=== PATIENT | female | born 1985 | race Caucasian/White ===

== ENCOUNTER 2016-09-05 05:46 | Inpatient (IN) | payer OTHER ==
[~2016-09-05] VITALS: Ht 165.1 cm; Wt 85.3 kg
[~2016-09-05 05:46] MED LIST: ABILIFY 5MG5 MG PO; AMBIEN 10MG10 MG PO; AMBIEN10 M1 PO; AMBIEN10 MG; ANTABUSE250 M1 PO; ATIVAN 0.5MG T0.5 MG PO; CAMPRAL333 MG PO; CLONAZEPAM1 M2 PO; DEXTROAMP-AMPHE20 MG PO; DISULFIRAM PO; FOLIC ACID 1 MG PO; GABAPENTIN400 MG PO; IBUPROFEN800 M1 PO; K-DUR 10MEQ TA10 MEQ PO; KETOROLAC TROME10 M1 PO; LATUDA120 M1 PO; LATUDA60 M1 PO; LEADER MELATONIN5 MG PO; LORAZEPAM1 M1 PO; MELATONIN5 M1 PO; METOPROLOL SUC100 M2 PO; MIRALAX17 G1 PO; MOTRIN 400 MG400 MG PO; OMEPRAZOLE40 M1 PO; ONDANSETRON ODT4 M1 PO; OXYCODONE5 MG PO; PROAIR HFA8.5 GM INH; PROPRANOLOL HCL20 MG PO; PROZAC10 MG PO; PROZAC20 M1 PO; SUBOXONE 8 MG-1 EACH SL; SUBOXONE 8 MG-21 TAB PO; TOPAMAX 100MG100 MG PO; TORADOL10 MG PO; TRAMADOL50 MG PO; Theragran Vitamins PO; VITAMIN B-150 MG PO; VITAMIN B1100 MG PO; VYVANSE60 M1 PO; ZOFRAN 4MG ORALL4 MG PO; ZOFRAN4 M1 PO; ZOFRAN4 M1 SL; [UNRECOGNIZED DRUG - OTHER] PO
--- NOTE | 2016-09-05 05:56 | ED GI/GU/ABDOMINAL COMPLAINT ---
History of Present Illness General Chief Complaint: Abdominal Pain/Flank Pain Stated Complaint: PANCREATITIS, NEEDS TO BE SEEN RIGHT AWAY PER PT Source: patient, old records Exam Limitations: no limitations Vital Signs & Intake/Output Vital Signs & Intake/Output Vital Signs Date Time Temp Pulse Resp B/P B/P Pulse O2 O2 Flow FiO2 Mean Ox Delivery Rate 09/05 0632 98.7 78 18 158/116 09/05 0612 99 Room Air 09/05 0612 98.7 78 18 158/116 99 Room Air Allergies Coded Allergies: aspirin (Intermediate, HIVES AND NAUSEA 02/18/16) carbamazepine (Intermediate, RASH 02/18/16) cephalexin (Mild, RASH 02/18/16) lamotrigine (From LAMICTAL) (Mild, RASH 02/18/16) amoxicillin (Mild, FLU LIKE S/S 02/18/16) Reconcile Medications Albuterol Sulfate (Proair Hfa) 90 MCG HFA.AER.AD 2 PUF INH Q4-6 PRN PRN BREATHING (Reported) Buprenorphine HCl/Naloxone HCl (Suboxone 8 MG-2 MG Sl Film) 8 MG-2 MG FILM 1 STR SL BID CHR. OPIATE DEPENDANCE (Reported) Clonazepam 1 MG TABLET 1 TAB PO BIDP PRN MENTAL HEALTH (Reported) Dextroamphetamine/Amphetamine (Dextroamp-Amphetamin 20 MG Tab) 20 MG TABLET 1 TAB PO DAILY ADD (Reported) Disulfiram (Antabuse) 250 MG TABLET 1 TAB PO DAILY ALCOHOL DETOX Ibuprofen 800 MG TABLET 1 TAB PO TID PRN PAIN (Reported) Lisdexamfetamine Dimesylate (Vyvanse) 60 MG CAPSULE 1 CAP PO DAILY MENTAL HEALTH (Reported) Lorazepam 1 MG TABLET 1 TAB PO 4 TIMES/DAY ANXIETY (Reported) Lurasidone HCl (Latuda) 80 MG TABLET 1 TAB PO QPM MENTAL HEALTH (Reported) Metoprolol Succinate 100 MG TAB.ER.24H 1 TAB PO DAILY UNK (Reported) Multivitamin (Qkiphy-O-Ggl) 1 TAB TAB 1 TAB PO DAILY SUPPLEMENT Omeprazole 40 MG CAPSULE.DR 1 CAP PO DAILY ACID REFLUX (Reported) Polyethylene Glycol 3350 (Miralax) 17 GM POWD.PACK 1 PAC PO DAILY CONSTIPATION (Reported) dissolve in water Zolpidem Tartrate (Ambien 10MG) 10 MG TABLET 1 TAB PO AT BEDTIME SLEEP ( Reported) Triage Nurses Notes Reviewed? yes ? N Is pt currently ? No HPI: Patient presents with periumbilical abdominal pain that radiates through to her back. The pain is sharp and stabbing in nature. The pain is 10 out of 10. There are no aggravating or alleviating factors. Positive nausea but no vomiting. No constipation or diarrhea. Similar symptoms in the past with pancreatitis. Patient states that her last alcoholic beverage was 3 days ago. Patient did not take her antihypertensive medicine yesterday or today. Past History Travel History Traveled to [place] past 21 day No Medical History Any Pertinent Medical History? 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 No Review of Systems Review of Systems Constitutional: Reports: no symptoms. EENTM: Reports: no symptoms. Respiratory: Reports: no symptoms. Cardiovascular: Reports: no symptoms. GI: Reports: see HPI, abdominal pain, nausea. Genitourinary: Reports: no symptoms. Musculoskeletal: Reports: no symptoms. Skin: Reports: no symptoms. Neurological/Psychological: Reports: no symptoms. Hematologic/Endocrine: Reports: no symptoms. Immunologic/Allergic: Reports: no symptoms. All Other Systems: Reviewed and Negative Physical Exam Physical Exam General Appearance: well developed/nourished, alert, awake, anxious, severe distress Head: atraumatic, normal appearance Eyes: Bilateral: PERRL, EOMI. Ears, Nose, Throat, Mouth: hearing grossly normal, DRY MUCOSA Neck: normal inspection, supple, full range of motion Respiratory: normal breath sounds, chest non-tender, no respiratory distress, lungs clear Cardiovascular: regular rate/rhythm, normal peripheral pulses Gastrointestinal: normal bowel sounds, soft, non-tender, no organomegaly Back: normal inspection, normal range of motion Extremities: normal range of motion Neurologic/Psych: no motor/sensory deficits, awake, alert, oriented x 3, normal gait, normal mood/affect Skin: intact, normal color, warm/dry Core Measures ACS in differential dx? No Severe Sepsis Present: No Septic Shock Present: No Progress Differential Diagnosis: biliary colic, cholecystitis, diverticulitis, gastritis, hepatitis, ischemic bowel, inflamm bowel dis, pancreatitis Plan of Care: Orders Procedure Date/time Status Admit to inpatient 09/05 657 Active US-LIMITED ABDOMEN 09/06 651 Active URINE DRUGS OF ABUSE 09/05 549 Active URINALYSIS 09/05 549 Active TRIGLYCERIDES 09/05 549 Complete LIPASE 09/05 549 Complete HUMAN BETA HCG SCREEN 09/05 549 Complete ETHANOL 09/05 549 Complete COMPREHENSIVE METABOLIC PANEL 09/05 549 Complete CBC WITHOUT DIFFERENTIAL 09/05 549 Complete AMYLASE 09/05 549 Complete Laboratory Tests 09/05/16 0624: Anion Gap 10, Estimated GFR > 60, BUN/Creatinine Ratio 25.0, Glucose 130 H, Calcium 8.7, Total Bilirubin 1.4 H, AST 44 H, ALT 52, Alkaline Phosphatase 75, Total Protein 7.2, Albumin 4.4, Globulin 2.8, Albumin/Globulin Ratio 1.6, Triglycerides 109, Amylase 62, Lipase 707 H, Total Beta HCG NEGATIVE, CBC w Diff NO MAN DIFF REQ, RBC 3.99 L, MCV 99.7 H, MCH 34.4 H, RDW 13.8, MPV 8.1, Gran % 81.8 H, Lymphocytes % 12.0 L, Monocytes % 4.8, Eosinophils % 0.5, Basophils % 0.9, Absolute Granulocytes 6.4, Absolute Lymphocytes 0.9 L, Absolute Monocytes 0.4, Absolute Eosinophils 0, Absolute Basophils 0.1, PUBS MCHC 34.5, Serum Alcohol < 10.0 Initial ED EKG: none Departure Departure Disposition: STILL A PATIENT Condition: Stable Clinical Impression Primary Impression: Pancreatitis, alcoholic, acute Qualifiers: Acute pancreatitis complication: unspecified Qualified Code: K85.20 - Alcohol induced acute pancreatitis without necrosis or infection Referrals: PATIENT HAS NO PRIMARY CARE DR (PCP/Family) Departure Forms: Customer Survey General Discharge Information Admission Note Spoke With: GENE UGALDE MD Documentation of Exam: Documentation of any treatments & extenuating circumstances including Concerns Regarding Discharge (functional status, medication knowledge or non-compliance, living conditions, etc.) that warrant an admission rather than observation: [NPO , IV FLUIDS, PAIN CONTROL, GI CONSULT.]
[2016-09-05 06:34] LABS: ABSOLUTE BASOPHIL COUNT 0.1 /CUMM (0.0-0.2); ABSOLUTE EOSINOPHIL COUNT 0 /CUMM (0.0-0.7); ABSOLUTE GRANULOCYTE CT 6.4 /CUMM (1.4-6.5); ABSOLUTE LYMPH COUNT 0.9 /CUMM (1.2-3.4); ABSOLUTE MONOCYTE COUNT 0.4 /CUMM (0.10-0.60); BASOPHIL % 0.9 % (0.0-2.0); EOSINOPHIL % 0.5 % (0-5); GRANULOCYTE % 81.8 % (42.2-75.2); HEMATOCRIT 39.8 % (37-47); MEAN CORPUSCULAR HGB 34.4 PG (27.0-31.0); MEAN CORPUSCULAR HGB CONC 34.5 G/DL (33.0-37.0); MEAN CORPUSCULAR VOLUME 99.7 FL (81.0-99.0); MEAN PLATELET VOLUME 8.1 FL (7.4-10.4); PLATELET COUNT 255 /CUMM (130-400); RBC DISTRIBUTION WIDTH 13.8 % (11.5-14.5); RED BLOOD CELL CT 3.99 /CUMM (4.20-5.40); WHITE BLOOD CELL COUNT 7.9 /CUMM (4.8-10.8)
--- NOTE | 2016-09-05 07:22 | History & Physical ---
ORION VALDEZ MD 09/05/16 0722: General Information and HPI History of Present Illness: This is a 31-year-old female with a past medical history of acute pancreatitis in the past, alcohol dependence, opiate and heroin overdose history currently on Suboxone, history of hypertension, presented to the [facility] at 5 AM in the morning with persistent abdominal pain and nausea. The patient had previous episodes of recurrent pancreatitis in the past with the last one being in February 2016. The patient described the pain in epigastric, sharp and radiating to the back, rated 9 on 10 associated with persistent nausea. The patient also had 3-4 episodes of clear vomitus yesterday and one in the morning prior coming to the hospital. She does admit of drinking alcohol intermittently and occasionally in her last drink was 4 days back and included 2 beers. She denies any other aggravating factors for her pancreatitis. She has been compliant with her medications and no decent changes in her medications have been made. Denies any recent sick contacts, diarrhea constipation. She is seen by a Dr. Meg Grullon of [facility] in [place] as her PCP, who prescribes her Suboxone for heroine dependent and overdose. Allergies/Medications Allergies: Coded Allergies: aspirin (Intermediate, HIVES AND NAUSEA 02/18/16) carbamazepine (Intermediate, RASH 02/18/16) cephalexin (Mild, RASH 02/18/16) lamotrigine (From LAMICTAL) (Mild, RASH 02/18/16) amoxicillin (Mild, FLU LIKE S/S 02/18/16) Home Med list Albuterol Sulfate (Proair Hfa) 90 MCG HFA.AER.AD 2 PUF INH Q4-6 PRN PRN BREATHING (Reported) Buprenorphine HCl/Naloxone HCl (Suboxone 8 MG-2 MG Sl Film) 8 MG-2 MG FILM 1 STR SL BID CHR. OPIATE DEPENDANCE (Reported) Clonazepam 1 MG TABLET 1 TAB PO BIDP PRN MENTAL HEALTH (Reported) Dextroamphetamine/Amphetamine (Dextroamp-Amphetamin 20 MG Tab) 20 MG TABLET 1 TAB PO DAILY ADD (Reported) Disulfiram (Antabuse) 250 MG TABLET 1 TAB PO DAILY ALCOHOL DETOX Ibuprofen 800 MG TABLET 1 TAB PO TID PRN PAIN (Reported) Lisdexamfetamine Dimesylate (Vyvanse) 60 MG CAPSULE 1 CAP PO DAILY MENTAL HEALTH (Reported) Lorazepam 1 MG TABLET 1 TAB PO 4 TIMES/DAY ANXIETY (Reported) Lurasidone HCl (Latuda) 80 MG TABLET 1 TAB PO QPM MENTAL HEALTH (Reported) Metoprolol Succinate 100 MG TAB.ER.24H 1 TAB PO DAILY UNK (Reported) Multivitamin (Rpoyft-F-Ffc) 1 TAB TAB 1 TAB PO DAILY SUPPLEMENT Omeprazole 40 MG CAPSULE.DR 1 CAP PO DAILY ACID REFLUX (Reported) Polyethylene Glycol 3350 (Miralax) 17 GM POWD.PACK 1 PAC PO DAILY CONSTIPATION (Reported) dissolve in water Zolpidem Tartrate (Ambien 10MG) 10 MG TABLET 1 TAB PO AT BEDTIME SLEEP ( Reported) Past History Travel History Traveled to [place] past 21 day No Medical History Neurological: NONE EENT: NONE Cardiovascular: hypertension Respiratory: asthma Gastrointestinal: pancreatitis Hepatic: ?LIVER PROBLEM Renal: NONE Musculoskeletal: EYRTHROMYALGIA Psychiatric: bipolar disease, depression, substance abuse, history of overdose on Prozac and alcohol PTSD Endocrine: NONE Blood Disorders: NONE Cancer(s): NONE 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 self Services at Home: None Primary Language: Uzbek Smoking Status: Current Some Day Smoker ETOH Use: occasional use Illicit Drug Use: marijuana, PAST HEROIN Functional Ability ADLs Independent: dressing, eating, toileting, bathing. Ambulation: independent IADLs Independent: shopping, housework, finances, food prep, telephone, transportation , medication admin. Review of Systems Review of Systems Constitutional: Reports: see HPI. Cardiovascular: Denies: chest pain, orthopena, palpitations, peripheral edema. Respiratory: Denies: see HPI, cough, hemoptysis, orthopnea, short of breath. GI: Reports: abdominal pain, constipation, nausea, vomiting. Exam & Diagnostic Data Last 24 Hrs of Vital Signs/I&O Vital Signs Date Time Temp Pulse Resp B/P B/P Pulse O2 O2 Flow FiO2 Mean Ox Delivery Rate 09/05 0729 98.6 76 18 142/98 98 Room Air 09/05 0632 98.7 78 18 158/116 09/05 0612 99 Room Air 09/05 0612 98.7 78 18 158/116 99 Room Air Intake & Output 09/05 0800 09/05 0000 09/04 1600 Intake Total Output Total Balance Patient 188 lb Weight Weight Reported by Patient Measurement Method Physical Exam General Appearance Alert, Oriented X3, Cooperative Skin No Rashes, No Breakdown Skin Temp/Moisture Exam: Cool/Dry Sepsis Skin Exam (color): Normal for Ethnicity, Cyanotic HEENT Atraumatic, PERRLA Neck Supple, No JVD Lymphatic Axillary nl, Cervical nl Cardiovascular Regular Rate, Normal S1, Normal S2 Lungs Clear to Auscultation, Normal Air Movement Abdomen epigastric tenderness normal BS no guarding or tenderness Neurological Normal Gait, Normal Speech Extremities No Clubbing, No Cyanosis Assessment/Plan Assessment: 31-year-old female 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 Labs shows normal WBC, hemoglobin, hematocrit, Chemistries shows sodium of 135, potassium of 3.8, creatinine of 0.6, lipase level of 783 Serum alcohol level less than 10 Assessment 1. Acute recurrent (6th episode in total)pancreatitis most likely secondary to alcohol abuse. Gallstone panceatitis is also a possibility and hence needs to be ruled out 2. History of hypertension 3. History of her heroin abuse and on suboxone 4. History of alcohol dependence 5. History of mood disorders and axiety 6.H/o ADHD Plan Admit the patient to general medicine floor Hydrated aggressively with IV Ringer lactate at 1 50 mL per hour. Currently the patient is on normal saline. We will switch to Ringer lactate once the bag is finished Pain control with tramadol. Avoid opioids by the patient is on Suboxone. hold suboxone while on opooids. We will also add gabapentin to the patient's pain control regimen, start 100 mg 3 times a day(once patient starts eating Check ultrasound to rule out gallbladder stones Start her on CIWA and ativan as per CIWA Repeat CBC and BMP in the morning to look for hemoconcentration If pain does not subside in the next [address] scan with IV contrast to look for pseudocyst or pancreatic fluid collection Nothing by mouth for now and will advance the diet in am . check lipid panel and hba1c Patient is full code DVT prophylaxis with subcutaneous Lovenox Pain pathways As Ranked By This Provider Problem List: 1. Pancreatitis 2. Intractable abdominal pain Core Measures/Miscellaneous Acute Coronary Syndrome ACS Diagnosis: No Cerebrovascular Accident CVA/TIA Diagnosis: No Congestive Heart Failure CHF Diagnosis: No Venous Thromboembolism VTE Risk Factors: Acute medical illness, Age > 40 [facility] prophylaxis d/t: VTE low risk, No contraindications No VTE Pharm Prophylaxis d/t: VTE low risk, No contraindications VTE Diagnosis: No VTE Type: NONE VTE Confirmed by (Test): NONE Severe Sepsis Severe Sepsis Present: No Septic Shock Septic Shock Present: No Miscellaneous Documentation Attending Case Discussed With: GENE UGALDE MD Primary Care Physician: PATIENT HAS NO PRIMARY CARE DR Patient sees these Specialists noneq Level of Patient Care: [facility] Attending MD Review Statement Attending Statement Attending MD Statement: examined this patient, discuss w/resident/PA/ACCURACY EXPERT, agreed w/resident/PA/ACCURACY EXPERT, reviewed EMR data (avail)
--- NOTE | 2016-09-05 08:43 | ULTRASOUND REPORT ---
EXAMINATION: US ABDOMEN LIMITED CLINICAL INFORMATION: Multiple episodes of pancreatitis. EtOH. COMPARISON: Ultrasound examinations of the abdomen done 02/20/2014 and 03/11/2016. CT of the abdomen and pelvis on April 2014, January 2015, May 2015, and September 2015. TECHNIQUE: Real-time imaging of the right upper quadrant abdominal viscera. FINDINGS: PANCREAS: In general, the overall size of the pancreas has increased slightly since the last exam February 2016. In addition, the parenchymal echotexture has diminished somewhat. This would be consistent with a mild form of acute pancreatitis. Enzyme correlation is suggested. However, there are no complications of pancreatitis demonstrated and no sign of peripancreatic effusions. LIVER: The liver demonstrates normal size, and contour. There is evidence of mild diffuse fatty filtration. No focal lesion or intrahepatic biliary duct dilatation. GALLBLADDER: Normal. The gallbladder is physiologically distended without evidence of stones, sludge, polyps, wall thickening or pericholecystic fluid. COMMON BILE DUCT: Normal in caliber measuring 0.4 cm in diameter. RIGHT KIDNEY: Normal. No hydronephrosis. No renal calculi or focal parenchymal lesions. The kidney measures 10.0 cm in maximum dimension. FREE FLUID: None. IMPRESSION: 1. Normal biliary tract. 2. Mild pancreatic enlargement with diminished echogenicity suggesting mild acute pancreatitis. No complications. 3. Fatty liver.
[2016-09-05 09:15] VITALS: BP 134/82
[2016-09-05 12:35] VITALS: BP 138/64
[2016-09-05 14:00] VITALS: BP 136/72
[2016-09-05 14:31] VITALS: BP 136/72
[2016-09-05 22:17] VITALS: BP 132/80
[2016-09-06 04:26] VITALS: BP 120/80
--- NOTE | 2016-09-06 07:22 | PN- Housestaff ---
NIKKI AARON,[facility] 09/06/16 0722: Subjective Follow-up For: Pancreatitis Complaints: pain scale (0-10) (8/10) Subjective: Ms Dyer appears sleepy today. However she states that she did not sleep well overnight because of abdominal pain 8/10 intensity. She reports improvement in her nausea and denies vomitting. She denies diarrhea. No palpitations or chest pains. No shortness of breath. Review of Systems Constitutional: Denies: chills, fever. EENTM: Denies: blurred vision, visual changes. Cardiovascular: Denies: chest pain, palpitations. Respiratory: Denies: cough, short of breath. Gastrointestinal: Reports: abdominal pain. Denies: constipation, diarrhea. Objective Last 24 Hrs of Vital Signs/I&O Vital Signs Date Time Temp Pulse Resp B/P B/P Pulse O2 O2 Flow FiO2 Mean Ox Delivery Rate 09/06 0919 68 148/100 09/06 0426 97.6 62 20 120/80 91 Room Air 09/05 2217 97.9 60 20 132/80 90 Room Air 09/05 1431 98.9 61 20 136/72 96 09/05 1400 98.9 61 20 136/72 09/05 1235 97.7 59 18 138/64 09/05 1235 97.7 59 18 138/64 95 Intake & Output 09/06 1600 09/06 0800 09/06 0000 Intake Total 1600 1200 Output Total Balance 1600 1200 Intake, IV 1200 1200 Intake, Oral 400 Physical Exam General Appearance: Oriented X3, Cooperative, No Acute Distress, Drowsy Skin: No Rashes Skin Temp/Moisture Exam: Warm/Dry HEENT: Dry mucous membranes Neck: Supple, No JVD, No thryomegaly, +2 Carotid Pulse wo Bruit Lymphatic: Cervical nl Cardiovascular: Regular Rate, Normal S1, Normal S2, No Murmurs Lungs: Clear to Auscultation, Normal Air Movement Abdomen: Soft, No Hepatospenomegaly, No Masses, Moves with respiration, Generalized tenderness, hypoactive bowel sounds Neurological: Normal Speech, Normal Tone Extremities: No Edema, Normal Pulses Current Medications: Current Medications Sig/Gemma Start time Last Medication Dose Route Stop Time Status Admin Acetaminophen 650 MG Q6P PRN 09/05 729 AC PO Acetaminophen 1,000 MG Q6P PRN 09/05 729 AC 09/06 IV 0827 Albuterol Sulfate 2 PUF Q4-6 PRN PRN 09/05 0730 AC INH Buprenorphine/ 1 TAB BID 09/05 1000 DC Naloxone SL Clonazepam 1 MG BID PRN 09/05 1000 AC PO 09/12 0959 Enoxaparin Sodium 40 MG DAILY 09/05 1000 AC 09/06 SC 0919 Hydromorphone HCl 1 MG Q4 HRS NEEDED PRN 09/06 1015 AC IV Hydromorphone HCl 1 MG Q6P PRN 09/05 0730 DC 09/06 IV 0923 Lactated Ringer's 1,000 ML Q6H 09/05 0745 AC 09/06 IV 0827 Lorazepam 0 Q1P PRN 09/05 0815 AC 09/05 IV 2026 Lurasidone HCl 80 MG QPM 09/05 2200 AC 09/05 PO 2025 Methylphenidate HCl 10 MG 0700,1200 09/05 1200 AC PO Metoprolol Succinate 100 MG DAILY 09/06 1000 AC 09/06 PO 0919 Non-Formulary 0 0700,1200 09/05 1200 DC Medication ANY Omeprazole 40 MG DAILY AC 09/05 0730 AC 09/06 PO 0619 Ondansetron HCl 4 MG ONCE ONE 09/05 1715 DC 09/05 IV 09/05 1716 1722 Ondansetron HCl 4 MG Q6P PRN 09/05 1345 AC 09/05 IV 1711 Senna/Docusate Sodium 2 TAB AT BEDTIME PRN 09/05 0730 AC PO Sodium Chloride 1,000 ML .[id number] 09/05 0715 ME 09/05 IV 0728 Tramadol HCl 50 MG Q6 PRN 09/05 0815 AC 09/06 PO 0619 Last 24 Hrs of Lab/Hunter Results Last 24 Hrs of Labs/Mics: Laboratory Tests 09/06/16 0640: Anion Gap 8, Estimated GFR > 60, BUN/Creatinine Ratio 6.7 L, CBC w Diff NO MAN DIFF REQ, RBC 3.33 L, MCV 98.0, MCH 34.5 H, RDW 13.9, MPV 8.5, Gran % 62.2, Lymphocytes % 26.6, Monocytes % 7.4, Eosinophils % 3.4, Basophils % 0.4, Absolute Granulocytes 3.4, Absolute Lymphocytes 1.4, Absolute Monocytes 0.4, Absolute Eosinophils 0.2, Absolute Basophils 0, PUBS MCHC 35.2 09/05/16 1050: Urine Opiates Screen 1237.00, Methadone Screen 62, Barbiturate Screen < 60, Ur Phencyclidine Scrn < 6.00, Amphetamines Screen > 1450.0 H, U Benzodiazepines Scrn > 800.0 H, Urine Cocaine Screen < 50, Urine Cannabis Screen 74.20 H, Urine Color YEL, Urine Clarity HAZY H, Urine pH 6.0, Ur Specific [place] >= 1.030, Urine Protein TRACE H, Urine Ketones NEG, Urine Nitrite NEG, Urine Bilirubin NEG, Urine Urobilinogen 0.2, Ur Leukocyte Esterase NEG, Ur Microscopic SEDIMENT EXAMINED, Urine RBC RARE, Urine WBC 3-5 H, Ur Epithelial Cells MANY H , Urine Bacteria MOD H, Urine Mucus PACKD H, Urine Hemoglobin NEG, Urine Glucose NEG Assessment/Plan Assessment: 31-year-old female 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 Labs shows normal WBC, hemoglobin, hematocrit, Chemistries shows sodium of 135, potassium of 3.8, creatinine of 0.6, lipase level of 783 Serum alcohol level less than 10 Assessment & Plan 1. Acute recurrent (6th episode in total)pancreatitis most likely secondary to alcohol abuse. * Gallstone panceatitis ruled out with abd ultrasound which showed inflammed pancreas, but gall stones * Increase hydration with IV Ringer lactate at 200 mL per hour as patient appears dry * Pain control with tramadol. Increase frequency of IV dilaudid to 1mg Q 4 hours (from 1mg Q 6hrs) for severe pain/breakthrough.hold suboxone while on opioids. PLEASE WATCH FOR SEDATION AND RESPIRATORY DEPRESSION * Start clear liquid diet if tolerated * Continue IV zofran 4mg Q6PRN * Continue CIWA and ativan as per CIWA * If pain does not subside in the next [address] scan with IV contrast to look for pseudocyst or pancreatic fluid collection * Lipid panel and hba1c within normal limits * Continue omeprazole 40 mg daily 2. History of hypertension * Continue metoprolol XL 100 mg daily 3. History of her heroin abuse and on suboxone * Hold suboxone while on dilaudid 4. History of alcohol dependence * Ativan as per [facility] protocol 5. History of mood disorders and axiety * Continue clonopin, lurasidone 6. H/o ADHD * Continue ritalin * 7. Code status * Patient is full code 8. DVT prophylaxis * Subcutaneous Lovenox Problem List: 1. Pancreatitis 2. Alcohol dependence 3. Bipolar disorder 4. DVT prophylaxis 5. Full code status Pain Ratin Pain Location: Abdomen Pain Goal: Pain 4 or less Pain Plan: PO tramadol, IV dilaudid Tomorrow's Labs & Rationales: CBC, BEP Monitor blood counts/anemia and renal function in acute pancreatitis DVT/Prophylaxis: pharmacological LIA GARCIA MD 09/06/16 1446: Attending MD Review Statement Attending Statement Attending MD Statement: examined this patient, discuss w/resident/PA/DIP PAINTER, agreed w/resident/PA/DIP PAINTER, reviewed EMR data (avail) Attending Assessment/Plan: 31F PMH alcohol abuse, recurrent pancreatitis with chronic pancreatitis admitted with intractable nausea, vomiting, and epigastric pain in the setting of acute on chronic pancreatitis confirmed by ultrasound, with no evidence of cholelithiasis. Patient is uncomfortable and sleepy today, refusing to answer questions. Her abdomen is pulverizer tender. Hemodynamically stable. 1. Acute pancreatitis 2. Chronic pancreaitis 3. Intractable nausea and vomiting, non-cyclical 4. Intractable abdominal pain Plan - Continue on general medicine - Continue IV hydration - Increase frequency of Dilaudid to 1mg q4h PRN - Continue Zofran PRN - continue to hold Subuxone - Obtain psychiatry consult to assist with alcohol dependence and subuxone dosing once restarted - Continue home medications - Advance diet as tolerated - DVT PPx
[2016-09-06] MEDS ORDERED: DAILY MULTIPLE1 EACH PO (07:44)
[2016-09-06 08:06] LABS: ABSOLUTE BASOPHIL COUNT 0 /CUMM (0.0-0.2); ABSOLUTE EOSINOPHIL COUNT 0.2 /CUMM (0.0-0.7); ABSOLUTE GRANULOCYTE CT 3.4 /CUMM (1.4-6.5); ABSOLUTE LYMPH COUNT 1.4 /CUMM (1.2-3.4); ABSOLUTE MONOCYTE COUNT 0.4 /CUMM (0.10-0.60); BASOPHIL % 0.4 % (0.0-2.0); EOSINOPHIL % 3.4 % (0-5); GRANULOCYTE % 62.2 % (42.2-75.2); MEAN CORPUSCULAR HGB 34.5 PG (27.0-31.0); MEAN CORPUSCULAR HGB CONC 35.2 G/DL (33.0-37.0); MEAN PLATELET VOLUME 8.5 FL (7.4-10.4); PLATELET COUNT 226 /CUMM (130-400); RBC DISTRIBUTION WIDTH 13.9 % (11.5-14.5); RED BLOOD CELL CT 3.33 /CUMM (4.20-5.40); WHITE BLOOD CELL COUNT 5.4 /CUMM (4.8-10.8)
[2016-09-06 08:39] LABS: HEMATOCRIT 32.6 % (37-47)
[2016-09-06 13:58] VITALS: BP 126/78
[2016-09-06 22:00] VITALS: BP 110/50
[2016-09-07] VITALS (10 sets, daily range): BP systolic 120–165; BP diastolic 70–110
--- NOTE | 2016-09-07 07:17 | PN- Housestaff ---
NIKKI AARON,[facility] 09/07/16 0717: Subjective Follow-up For: Pancreatitis Abdominal pain and vomitting Complaints: pain scale (0-10) (8/10) Subjective: Ms Dyer was found sleeping quietly in bed. However on awakening she stated that she did not sleep well overnight because of her abdominal pain 8/10 intensity that radiates to the back. Despite increasing the frequency of her IV dilaudid to 1 mg Q 4 hrs yesterday, she admits to only transient relief for about 1 hour. She reports continued nausea, but no vomitting. She denies diarrhea and has no bowel movement yet. Her appetite remains poor and she only ate minimal food yesterday. No palpitations or chest pains. No shortness of breath. Review of Systems Constitutional: Denies: chills, fever. EENTM: Denies: blurred vision, visual changes. Cardiovascular: Denies: edema, palpitations, syncope. Respiratory: Denies: cough, short of breath, sputum production. Gastrointestinal: Denies: abdominal pain, constipation, diarrhea. Genitourinary: Denies: dysuria, hematuria. Objective Last 24 Hrs of Vital Signs/I&O Vital Signs Date Time Temp Pulse Resp B/P B/P Pulse O2 O2 Flow FiO2 Mean Ox Delivery Rate 09/07 0846 98.9 52 20 140/90 94 09/07 0604 98.9 52 20 120/70 93 Room Air 09/06 2200 98.3 64 18 110/50 98 Room Air 09/06 1358 98.1 61 20 126/78 94 Room Air 09/06 0919 68 148/100 Intake & Output 09/07 1600 09/07 0800 09/07 0000 Intake Total 1160 Output Total Balance 1160 Intake, IV 800 Intake, Oral 360 Physical Exam General Appearance: Alert, Oriented X3, Cooperative, No Acute Distress Skin: No Rashes Skin Temp/Moisture Exam: Warm/Dry HEENT: Atraumatic, PERRLA, EOMI, Mucous Membr. moist/pink Neck: Supple, No JVD, No thryomegaly, +2 Carotid Pulse wo Bruit Lymphatic: Cervical nl Cardiovascular: Regular Rate, Normal S1, Normal S2, No Murmurs Lungs: Clear to Auscultation, Normal Air Movement Abdomen: Normal Bowel Sounds, Soft, Generalized tenderness, Hypoactive bowel sounds Neurological: Normal Gait, Normal Speech, Strength at 5/5 X4 Ext Extremities: No Edema, Normal Pulses Vascular: Normal Pulses, Pulses Symmetrical Current Medications: Current Medications Sig/Gemma Start time Last Medication Dose Route Stop Time Status Admin Acetaminophen 650 MG Q6P PRN 09/05 0730 AC PO Acetaminophen 1,000 MG Q6P PRN 09/05 0730 AC 09/06 IV 1449 Albuterol Sulfate 2 PUF Q4-6 PRN PRN 09/05 0730 AC INH Buprenorphine/ 1 TAB BID 09/05 1000 DC Naloxone SL Clonazepam 1 MG BID PRN 09/05 1000 AC 09/06 PO 09/12 0959 1918 Enoxaparin Sodium 40 MG DAILY 09/05 1000 AC 09/06 SC 0919 Hydromorphone HCl 1 MG Q4 HRS NEEDED PRN 09/06 1015 AC 09/07 IV 0618 Hydromorphone HCl 1 MG Q6P PRN 09/05 0730 DC 09/06 IV 0923 Lactated Ringer's 1,000 ML Q6H 09/05 0745 AC 09/07 IV 0240 Lorazepam 0 Q1P PRN 09/05 0815 AC 09/05 IV 2026 Lurasidone HCl 80 MG QPM 09/05 2200 AC 09/06 PO 2132 Methylphenidate HCl 10 MG 0700,1200 09/05 1200 AC PO Metoprolol Succinate 100 MG DAILY 09/06 1000 AC 09/06 PO 0919 Omeprazole 40 MG DAILY AC 09/05 0730 DC 09/06 PO 0619 Ondansetron HCl 4 MG Q6P PRN 09/05 1345 AC 09/05 IV 1711 Pantoprazole Sodium 40 MG AT BEDTIME 09/06 2200 AC 09/06 IV 2131 Potassium Chloride 40 MEQ ONCE ONE 09/06 220 DC 09/06 PO 09/06 220 2132 Potassium Chloride 40 MEQ ONCE ONE 09/06 2014 DC 09/06 PO 09/06 2016 2030 Potassium Chloride 10 MEQ Q1H 09/06 2000 DC IV 09/06 2101 Potassium Chloride 10 MEQ Q1H 09/06 1045 DC 09/06 IV 09/06 1146 1516 Senna/Docusate Sodium 2 TAB AT BEDTIME PRN 09/05 0730 AC PO Tramadol HCl 50 MG Q6 PRN 09/05 0815 AC 09/06 PO 2029 Last 24 Hrs of Lab/Hunter Results Last 24 Hrs of Labs/Mics: Laboratory Tests 09/07/16 0620: Anion Gap 9, Estimated GFR > 60, BUN/Creatinine Ratio 6.0 L, CBC w Diff Pending , WBC Pending, RBC Pending, Hgb Pending, Hct Pending, MCV Pending, MCH Pending, RDW Pending, Plt Count Pending, MPV Pending, PUBS MCHC Pending Assessment/Plan Assessment: 31-year-old woman with a 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 She has been hydrated with IV ringers lactate and her pain is being managed with PO tramadol 50 mg Q6 prn and IV dilaudid 1 mg Q4 PRN for severe pain. Her pain persists and she is not tolerating a clear liquid diet well. She also does not feel hungry at this time. However, her hydration status is improved as she does not appear as dry as previously. Assessment & Plan 1. Acute pancreatitis (Recurrent-6th episode in total) most likely secondary to alcohol abuse. * Gallstone panceatitis ruled out with abd ultrasound which showed inflammed pancreas, but gall stones * Can decrease IV Ringer lactate to 150 cc per hour as patient's hydration is improved * Continue Pain control with PO tramadol 50 mmg Q6 hrs. Continue IV dilaudid at 1mg Q 4 hours for severe pain/breakthrough. I hesitate to increase the frequency of dilaudid to Q1 mg Q3 hours. PLEASE WATCH FOR SEDATION AND RESPIRATORY DEPRESSION. * Continue to hold suboxone while on opioids * Continue clear liquid diet as tolerated * Continue IV zofran 4mg Q6PRN * Continue CIWA and ativan as per CIWA * If no overall improvement in clinical status will consider abdominal CT scan with IV contrast to look for pseudocyst or pancreatic fluid collection * Lipid panel and hba1c within normal limits * PO Omeprazole 40 mg daily changed to IV protonix 40 mg daily 2. History of hypertension * Continue metoprolol XL 100 mg daily 3. History of her heroin abuse and on suboxone * Hold suboxone while on dilaudid 4. History of alcohol dependence * Ativan as per CIWA protocol 5. History of mood disorders and axiety * Continue clonopin, lurasidone 6. H/o ADHD * Continue ritalin * 7. Code status * Patient is full code 8. DVT prophylaxis * Subcutaneous Lovenox Problem List: 1. Pancreatitis, alcoholic, acute 2. Alcohol dependence 3. Bipolar disorder 4. Heroin abuse 5. DVT prophylaxis 6. Full code status Pain Ratin Pain Location: Abdomen Pain Goal: Pain 4 or less Pain Plan: PO tramadol, IV dilaudid Tomorrow's Labs & Rationales: CBC, BEP: Monitor blood counts/anemia and renal function in acute pancreatitis LIA GARCIA MD 09/07/16 1331: Attending MD Review Statement Attending Statement Attending MD Statement: examined this patient, discuss w/resident/PA/COP BREAKER, agreed w/resident/PA/COP BREAKER, reviewed EMR data (avail) Attending Assessment/Plan: 31F PMH alcohol abuse, recurrent pancreatitis with chronic pancreatitis admitted with intractable nausea, vomiting, and epigastric pain in the setting of acute on chronic pancreatitis confirmed by ultrasound, with no evidence of cholelithiasis. Patient is uncomfortable and sleepy today, refusing to answer questions. 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 Hemodynamically stable. 1. Acute pancreatitis 2. Chronic pancreaitis 3. Intractable nausea and vomiting, non-cyclical 4. Intractable abdominal pain Plan - Continue on general medicine - Continue IV hydration - Increase frequency of Dilaudid to 1mg q4h PRN - Continue Zofran PRN - Restart Subuxone tomorrow - Obtain psychiatry consult to assist with alcohol dependence and subuxone dosing once restarted - Continue home medications - Advance diet as tolerated - DVT PPx - Anticipated discharge tomorrow. Send CMR for review.
[2016-09-07 08:54] LABS: ABSOLUTE BASOPHIL COUNT 0 /CUMM (0.0-0.2); ABSOLUTE EOSINOPHIL COUNT 0.1 /CUMM (0.0-0.7); ABSOLUTE GRANULOCYTE CT 3.4 /CUMM (1.4-6.5); ABSOLUTE MONOCYTE COUNT 0.4 /CUMM (0.10-0.60); BASOPHIL % 0.3 % (0.0-2.0); EOSINOPHIL % 1.8 % (0-5); GRANULOCYTE % 68.7 % (42.2-75.2); HEMATOCRIT 31.4 % (37-47); MEAN CORPUSCULAR HGB 34.8 PG (27.0-31.0); MEAN CORPUSCULAR HGB CONC 35.2 G/DL (33.0-37.0); MEAN CORPUSCULAR VOLUME 98.7 FL (81.0-99.0); MEAN PLATELET VOLUME 8.9 FL (7.4-10.4); PLATELET COUNT 214 /CUMM (130-400); RBC DISTRIBUTION WIDTH 13.8 % (11.5-14.5); RED BLOOD CELL CT 3.19 /CUMM (4.20-5.40); WHITE BLOOD CELL COUNT 4.9 /CUMM (4.8-10.8)
[2016-09-07] MEDS ORDERED: FLUOXETINE HCL20 M2 PO (21:34)
--- NOTE | 2016-09-07 21:46 | Patient Discharge Instructions ---
Discharge Instructions General Discharge Information You were seen/treated for: Acute pancreatitis Abdominal pain Nausea and vomitting Watch for these problems: Worsening abdominal pain, intractable vomitting. fever Special Instructions: 1. Follow up with your primary care physician within 1 week of discharge. You have no primary care provider so you have been referred to Dr. Esther Bond at [address] [place] [address], [place] [id number] . Please call and make an appointment 2. Please abstain from alcohol as this can induce or worsen your pancreatitis. You stated that you have a prescription for acamprosate at home. Please continue with this medication to support your alcohol abstinence. 3. You have been given a few dilaudid pills for your pancreatitis pain. Please stop taking your suboxone while you are on dilaudid and restart your suboxone ONLY after your dilaudid pills are finished. DO NOT TAKE BOTH DILAUDID AND SUBOXONE AT THE SAME TIME. Diet Continue normal diet: No Recommended Diet: Regular Activity Full Activity/No Limits: No Activity Self Limited: Yes Acute Coronary Syndrome Inclusion Criteria At DC or during hospital stay patient has or had the following: ACS DIAGNOSIS No Discharge Core Measures Meds if any: Prescribed or Continued at Discharge Meds if any: NOT Prescribed or Continued at Discharge Congestive Heart Failure Inclusion Criteria At DC or during hospital stay patient has or had the following: CHF DIAGNOSIS No Discharge Core Measures Meds if any: Prescribed or Continued at Discharge Meds if any: NOT Prescribed or Continued at Discharge Cerebrovascular accident Inclusion Criteria At DC or during hospital stay patient has or had the following: CVA/TIA Diagnosis No Discharge Core Measures Meds if any: Prescribed or Continued at Discharge Meds if any: NOT Prescribed or Continued at Discharge Venous thromboembolism Inclusion Criteria VTE Diagnosis No VTE Type NONE VTE Confirmed by (Test) NONE Discharge Core Measures - Per Current guidelines, there needs to be overlap - treatment for the first 5 days of Warfarin therapy. - If discharged on Warfarin prior to 5 days of - overlap therapy, the patient will need to be - assessed for post discharge needs including - *Post discharge parental anticoagulation - *Warfarin and/or parental anticoagulation education - *Follow up date to check INR post discharge At least 5 days overlap therapy as Inpatient No (No DVT) Meds if any: Prescribed or Continued at Discharge Note: Overlap Therapy is Warfarin and Anticoagulant Meds if any: NOT Prescribed or Continued at Discharge
[2016-09-08] VITALS: BP 142/86
[2016-09-08 06:30] VITALS: BP 140/82
--- NOTE | 2016-09-08 07:12 | Discharge Summary ---
Visit Information Visit Dates Admission Date: 09/05/16 Discharge Date: 09/08/16 Hospital Course Course Attending Physician: LIA GARCIA MD Primary Care Physician: PATIENT HAS NO PRIMARY CARE DR Hospital Course: Ms. Dyer is a 31 year old woman with a past medical history of alcohol abuse, previous recurrent episodes of alcoholic induced pancreatitis, anxiety, heroine abuse currently on chronic suboxone maintenance, history of suicidal attempts and bipolar disorder and ED with cheif complaints of epigastric and to the lower abdominal pain that radiates to her back. She has exprienced at least 6 previous episodes of recurrent pancreatitis in the past with the last one being in February 2016. She rated her epigastric pain as 9/10 intensity and associated with persistent nausea and 3-4 episodes of clear vomitus a day prior to presentation. She did admit to drinking alcohol intermittently despite her past episodes of pancreatitis (Reportedly, her last drink was 2 beers 4 days prior to presentation). Vitals at the time of admission showed a heart rate of 78 bpm, blood pressure 158/116 bpm, respiration rate of 18/min, O2 saturation of 99% on room air, temperature of 98.7F. Physical exam General Appearance: Alert, Oriented X3, Cooperative Skin: No Rashes, No Breakdown Skin Temp/Moisture Exam: Cool/Dry Sepsis Skin Exam (color): Normal for Ethnicity, Cyanotic HEENT: Atraumatic, PERRLA Neck: Supple, No JVD Lymphatic: Axillary nl, Cervical nl Cardiovascular: Regular Rate, Normal S1, Normal S2 Lungs: Clear to Auscultation, Normal Air Movement Abdomen: epigastric tenderness normal BS no guarding or tenderness Neurological: Normal Gait, Normal Speech Extremities: No Clubbing, No Cyanosis Labs showed: normal WBC 7.9/CUMM, hemoglobin 13.8 mg/dl, hematocrit 39% Chemistries shows sodium of 133, potassium of 3.8, creatinine of 0.6, lipase level of 707 (elevated), Total bilirubin 1.4, AST 44, ALT 44. Serum alcohol level was less than 10 A abdominal ultrasound showed a fatty liver with pancreatic enlargement with diminished echogenicity suggesting mild acute pancreatitis. No complications. She was admitted to the general [facility] for treatment of acute pancreatitis. Problem list 1. Acute Pancreatitis This was her 6th episode of pancreatitis and was likely related her continued alcohol use. She was started on IV fluids and placed on NPO for bowel rest. Her pain was controlled with IV dilaudid and PO tramadol. Her diet was gradually advanced and she was able to tolerate a normal diet without significant pain or vomitting prior to discharge. 2. Chronic opioid dependence She was placed on IV opiates at time of admission for control of her pain from pancreatitis. Her suboxone home medication was temporarily held while on admission. At discharge, she was counselled and given only a few pills of dilaudid for pain and told to restart her suboxone only after she has finished her dilaudid pills. She was reviewed by psychiatrist, Syed Nunez APRN. Her pain management physician Dr. Meg Grullon of [facility] in [place] was contacted and was aware of this. 3. History of alcohol dependence She was not actively withdrawing while in the hospital and her CIWA scores were low. She was counselled to abstain from alcohol and given a dose of Campral just prior to discharge. She stated that she has additional campral at home and would take it to help with abstinence from alcohol. She agreed to return to AA meetings. 4. History of bipolar disorder She was continued on her home medications including clonazepam. 5. DVT prophylaxis She was on Lovenox 40mg SC daily She had no primary care provider and was offered an appointment with Dr. sEther Bond on discharge. However, she refused and said she would follow up with another PCP of her choice. Allergies: Coded Allergies: aspirin (Intermediate, HIVES AND NAUSEA 02/18/16) carbamazepine (Intermediate, RASH 02/18/16) cephalexin (Mild, RASH 02/18/16) lamotrigine (From LAMICTAL) (Mild, RASH 02/18/16) amoxicillin (Mild, FLU LIKE S/S 02/18/16) Disposition Summary Disposition Principal Diagnosis: 1. Acute pancreatitis Additional Diagnosis: 1. Intractable nausea and vomiting, non-cyclical 2. Intractable abdominal pain 3. Hypertension 3. History of heroin abuse and on suboxone 4. History of alcohol dependence 5. Bipolar disorder Discharge Disposition: home or self care Discharge Instructions General Discharge Information Code Status: Full Code Patient's Diet: Regular Patient's Activity: Self limited activity Follow-Up Instructions/Appts: 1. Follow up with your primary care physician within 1 week of discharge. You have no primary care provider so you have been referred to Dr. Esther Bond at [address] [place] [address], [place] [address] . Please call and make an appointment 2. Please abstain from alcohol as this can induce or worsen your pancreatitis. You stated that you have a prescription for acamprosate at home. Please continue with this medication to support your alcohol abstinence. 3. You have been given a few dilaudid pills for your pancreatitis pain. Please stop taking your suboxone while you are on dilaudid and restart your suboxone ONLY after your dilaudid pills are finished. DO NOT TAKE BOTH DILAUDID AND SUBOXONE AT THE SAME TIME. Medications at Discharge Discharge Medications: Continue taking these medications: Buprenorphine HCl/Naloxone HCl (Suboxone 8 MG-2 MG Sl Film) 8 MG-2 MG FILM 1 Strip SUBLINGUAL TWICE DAILY Comments: RESUME ONCE NO LONGER TAKING DILAUDID Zolpidem Tartrate (Ambien) 10 MG TABLET 1 Tablet ORAL Every night Comments: DID NOT RECEIVE IN HOSPITAL Dextroamphetamine/Amphetamine (Dextroamp-Amphetamin 20 MG Tab) 20 MG TABLET 1 Tablet ORAL THREE TIMES DAILY Qty = 90 Comments: DID NOT RECEIVE IN HOSPITAL Polyethylene Glycol 3350 (Miralax) 17 GM POWD.PACK 1 Packet ORAL DAILY Instructions: dissolve in water Comments: DID NOT RECEIVE IN HOSPITAL Ibuprofen (Ibuprofen) 800 MG TABLET 1 Tablet ORAL THREE TIMES DAILY as needed for PAIN Comments: DID NOT RECEIVE IN HOSPITAL Lurasidone HCl (Latuda) 120 MG TABLET 1 Tablet ORAL Every night Comments: Last Taken:09/07/16 Time:10PM Clonazepam (Clonazepam) 1 MG TABLET 1 Tablet ORAL 2 x Daily as needed as needed for MENTAL HEALTH Qty = 60 Comments: Last Taken:09/08/16 Time:0900 Omeprazole (Omeprazole) 40 MG CAPSULE.DR 1 Capsule ORAL DAILY Qty = 30 Comments: DID NOT RECEIVE IN HOSPITAL Metoprolol Succinate (Metoprolol Succinate) 100 MG TAB.ER.24H 1 Tablet ORAL DAILY Qty = 30 Comments: Last Taken:09/08/16 Time:0930 Albuterol Sulfate (Proair Hfa) 90 MCG HFA.AER.AD 2 Puff Inhale through mouth EVERY 4-6 HOURS NEEDED as needed for BREATHING Qty = 8 Comments: DID NOT TAKE IN HOSPITAL Multivitamin (Daily Multiple Vitamin) 1 EACH TABLET 1 Tablet ORAL DAILY Comments: DID NOT RECEIVE IN HOSPITAL Fluoxetine HCl (Fluoxetine HCl) 20 MG CAPSULE 1 Capsule ORAL DAILY Qty = 30 Comments: DID NOT RECEIVE IN HOSPITAL Sumatriptan Succinate (Sumatriptan Succinate) 6 MG/0.5 ML PEN.INJCTR 0.5 Milliliters SUB-Q GIVE ONCE as needed for migraine Qty = 1 Instructions: USE AT ONSET OF MIGRAINE HEADACHE. DO NOT TAKE MORE THAN 12MG IN 24 HOURS. Comments: Last Taken:09/08/16 Time:1200 Start taking the following new medications: Ondansetron (Ondansetron Odt) 8 MG TAB.RAPDIS 1 Tablet ORAL EVERY 8 HOURS NEEDED as needed for NAUSEA OR VOMITTING Qty = 12 No Refills Comments: DID NOT RECEIVE IN HOSPITAL Hydromorphone HCl (Dilaudid) 4 MG TABLET 1 Tablet ORAL EVERY 4 HOURS NEEDED as needed for SEVERE PAIN Qty = 12 No Refills Comments: DID NOT RECEIVE IN HOSPITAL Copies To: JOSE AARON,CHUY HARRINGTON APRN, MD,[facility]
--- NOTE | 2016-09-08 07:59 | PN- Housestaff ---
NIKKI AARON,[facility] 09/08/16 0759: Subjective Follow-up For: Pancreatitis Abdominal pain and vomitting Complaints: pain scale (0-10) (7/10) Subjective: Ms Dyer was found sleeping quietly in bed. On awakening she states that her abdominal pain is a bit better at 7/10 intensity. However she does not appear to be in significant pain on her current pain regimen of IV dilaudid 1 mg Q 4 hrs. She reports continued nausea, but she was able to keep her food down. She denies diarrhea and has no bowel movement yet. Her appetite is improved. No palpitations or chest pains. No shortness of breath. Review of Systems Constitutional: Denies: chills, fever, weakness. EENTM: Denies: blurred vision, visual changes. Cardiovascular: Denies: chest pain, palpitations, syncope. Respiratory: Denies: cough, short of breath, sputum production. Gastrointestinal: Reports: abdominal pain, nausea. Denies: constipation, diarrhea, vomiting. Objective Last 24 Hrs of Vital Signs/I&O Vital Signs Date Time Temp Pulse Resp B/P B/P Pulse O2 O2 Flow FiO2 Mean Ox Delivery Rate 09/08 0937 82 130/80 09/08 0847 98.0 60 18 140/86 96 09/08 0630 99.2 67 18 140/82 95 Room Air 09/08 0000 99.5 64 20 142/86 09/07 2229 99.5 64 20 142/86 93 Room Air 09/07 2200 98.5 80 20 142/80 09/07 2000 98.5 55 20 142/80 09/07 1819 142/80 09/07 1800 98.5 51 20 142/80 09/07 1734 98.5 55 20 165/110 96 Room Air 09/07 1600 98.6 51 20 130/88 Intake & Output 09/08 1600 09/08 0800 09/08 0000 Intake Total 600 450 Output Total Balance 600 450 Intake, Oral 600 450 Physical Exam General Appearance: Alert, Oriented X3, Cooperative, No Acute Distress Skin Temp/Moisture Exam: Warm/Dry HEENT: Atraumatic, PERRLA, EOMI, Mucous Membr. moist/pink Neck: Supple, No JVD, No thryomegaly, +2 Carotid Pulse wo Bruit Lymphatic: Cervical nl Cardiovascular: Regular Rate, Normal S1, Normal S2, No Murmurs Lungs: Clear to Auscultation, Normal Air Movement Abdomen: Normal Bowel Sounds, Soft, Mild tenderness in epigastric and periumbilical region Neurological: Normal Gait, Normal Speech, Normal Tone Extremities: No Clubbing, No Edema Vascular: Normal Pulses, Pulses Symmetrical Current Medications: Current Medications Sig/Gemma Start time Last Medication Dose Route Stop Time Status Admin Acamprosate 333 MG TID 09/08 1000 DCD 09/08 PO 1218 Acetaminophen 650 MG Q6P PRN 09/05 0730 DCD PO Acetaminophen 1,000 MG Q6P PRN 09/05 0730 DCD 09/06 IV 1449 Albuterol Sulfate 2 PUF Q4-6 PRN PRN 09/05 0730 DCD INH Clonazepam 1 MG BID PRN 09/05 1000 DCD 09/08 PO 09/12 0959 0937 Enoxaparin Sodium 40 MG DAILY 09/05 1000 DCD 09/08 SC 0937 Hydromorphone HCl 1 MG Q4 HRS NEEDED PRN 09/06 1015 DCD 09/08 IV 1330 Lorazepam 0 Q1P PRN 09/05 0815 DCD 09/05 IV 2026 Lurasidone HCl 80 MG QPM 09/05 2200 DCD 09/07 PO 2143 Methylphenidate HCl 10 MG 0700,1200 09/05 1200 DCD 09/07 PO 0911 Metoprolol Succinate 100 MG DAILY 09/06 1000 DCD 09/08 PO 0937 Ondansetron HCl 4 MG .STK-MED ONE 09/07 2138 DC IM 09/07 2139 Ondansetron HCl 4 MG Q6P PRN 09/05 1345 DCD 09/07 IV 2139 Pantoprazole Sodium 40 MG AT BEDTIME 09/06 2200 DCD 09/07 IV 2140 Senna/Docusate Sodium 2 TAB AT BEDTIME PRN 09/05 0730 DCD PO Sumatriptan Succinate 6 MG ONE ONE 09/08 0930 DC 09/08 SC 09/08 0931 1217 Tramadol HCl 50 MG Q6 PRN 09/05 0815 DCD 09/07 PO 1652 Last 24 Hrs of Lab/Hunter Results Last 24 Hrs of Labs/Mics: Laboratory Tests 09/08/16 0600: Sodium Cancelled, Potassium Cancelled, Chloride Cancelled, Carbon Dioxide Cancelled, Anion Gap Cancelled, BUN Cancelled, Creatinine Cancelled, BUN/ Creatinine Ratio Cancelled, CBC w Diff Cancelled, WBC Cancelled, RBC Cancelled, Hgb Cancelled, Hct Cancelled, MCV Cancelled, MCH Cancelled, RDW Cancelled, Plt Count Cancelled, MPV Cancelled, PUBS MCHC Cancelled Assessment/Plan Assessment: 31-year-old woman with a 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 She has been hydrated with IV ringers lactate and her pain is being managed with PO tramadol 50 mg Q6 prn and IV dilaudid 1 mg Q4 PRN for severe pain. Her pain is improving and she is tolerating a regular diet with breakfast this morning. She is stable for discharge today. She was extensively counselled to abstain from alcohol use and was given a referral to see a primary care provider for follow up. She refused when I offered to set up an appointment for her personally by calling Dr. Bond' s office. Assessment & Plan 1. Acute pancreatitis most likely secondary to alcohol abuse-resolving * Gallstone panceatitis ruled out with abd ultrasound which showed inflammed pancreas, but gall stones * Patient is off IV fluids and tolerating regular diet without problems * Can stop IV dilaudid and PO tramadol and discharge her home on PO dilaudid 4mg Q 4 hours for severe pain/breakthrough with a script to last 2 days * CTPMP was checked and she has no suspicious patterns of opiate prescriptions noted * She was counselled to start taking her suboxone after she is finished with her Dilaudid * Continue to hold suboxone while on opioids * Continue regular diet on discharge * Change IV zofran 4mg Q6PRN to PO zofran 8 mg Q8 PRN for nausea or vomitting 2. History of hypertension * Continue metoprolol XL 100 mg daily 3. History of her heroin abuse and on suboxone * Hold suboxone while on dilaudid 4. History of alcohol dependence * Ativan as per [facility] protocol 5. History of mood disorders and axiety * Continue clonopin, lurasidone 6. H/o ADHD * Continue ritalin * 7. Code status * Patient is full code 8. DVT prophylaxis * Subcutaneous Lovenox Problem List: 1. Pancreatitis, alcoholic, acute 2. Alcohol dependence 3. Heroin abuse 4. DVT prophylaxis 5. Full code status Pain Ratin Pain Location: Abdomen Pain Goal: Pain 7 or less Pain Plan: PO dilaudid 4 mg Q4 hrs PRN Tomorrow's Labs & Rationales: None DVT/Prophylaxis: pharmacological Discharge Plan Discharge Disposition: home Stable for Discharge? Yes Anticipated Discharge (Day): today LIA GARCIA MD 09/08/16 1006: Attending MD Review Statement Attending Statement Attending MD Statement: examined this patient, discuss w/resident/PA/CABIN WORKER, agreed w/resident/PA/CABIN WORKER, reviewed EMR data (avail) Attending Assessment/Plan: 31F PMH alcohol abuse, recurrent pancreatitis with chronic pancreatitis admitted with intractable nausea, vomiting, and epigastric pain in the setting of acute on chronic pancreatitis confirmed by ultrasound, with no evidence of cholelithiasis. Patient is improved, with improved pain and tolerating small amounts of PO. 1. Acute pancreatitis 2. Chronic pancreaitis 3. Intractable nausea and vomiting, non-cyclical 4. Intractable abdominal pain Plan - Stable for discharge home - Will give 2 days of Dilaudid PRN to assist with pancreatitis pain - May restart Subuxone when no longer taking Dilaudid - Zofran PO PRN - Follow psychiatry recommendations - Continue home medications - Continue regular diet - Outpatient follow up with PCP
[2016-09-08] MEDS ORDERED: SUMATRIPTA6 MG/0.52 SQ (08:40)
[2016-09-08 08:47] VITALS: BP 140/86
[2016-09-08 09:37] VITALS: BP 130/80
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
[2016-09-08] MEDS ORDERED: ONDANSETRON ODT8 M1 PO (13:30)
[2016-09-08] MEDS ORDERED: DILAUDID4 M1 PO (13:30)
== END 2016-09-08 14:32 | DRG 439 ==
LOC: ERH 05:46 → ERHI 06:58 → 2NA 06:58 → ENRESERV 11:08 → ENTRNSPT 12:07 → EDTRNSPTTYP 12:16 → EDTRNSPTSTS 12:16 → EDTRNSPT 12:16 → 2NA 12:21 → CMPTRNSPT 12:55 → 2NA 09-06 19:48 → ENPENDDIS 09-08 14:17 → 2NA 09-08 14:32
PROVIDERS: Emergency Medicine; Internal Medicine; Internal Medicine Nephrology; ADMIT Internal Medicine
DX: K85.20 Alcohol induced acute pancreatitis without necrosis or infection (principal); F11.20 Opioid dependence, uncomplicated; I10 Essential (primary) hypertension; K86.0 Alcohol-induced chronic pancreatitis; F17.200 Nicotine dependence, unspecified, uncomplicated; F41.9 Anxiety disorder, unspecified; F39 Unspecified mood [affective] disorder; F90.9 Attention-deficit hyperactivity disorder, unspecified type; F12.90 Cannabis use, unspecified, uncomplicated
CPT/HCPCS: 2NASP; 80307; 81001; 82436; 96374; 96375; G0480; J0131; J1650; J2405; J3030; J7120; J7508